=== PATIENT | female | born 1990 | race Caucasian/White ===

== ENCOUNTER 2020-09-06 18:43 | Emergency (ER) | payer OTHER, MEDICAID, SELFPAY ==
--- NOTE | 2020-09-06 | XR_ITS ---
EXAMINATION: XR CHEST CLINICAL INFORMATION: Chest wall pain with inspiration COMPARISON: None TECHNIQUE: 2 views of the chest were obtained. FINDINGS: No significant abnormality is noted involving the heart, lungs, mediastinum, bony thorax or soft tissues. XR/XR chest 2V IMPRESSION: Unremarkable examination.
[2020-09-06 20:23] VITALS: BP 144/75; PULSE 91; RESP 16; TEMP 36.7; O2SAT 96; BMI 44.4
--- NOTE | 2020-09-06 20:43 | ED.EAR ---
HPI - Ear Problem General Chief complaint: Ear Problems Stated complaint: Earache Time Seen by Provider: 09/06/20 20:43 Source: patient Mode of arrival: ambulatory Limitations: no limitations History of Present Illness HPI Narrative: Otherwise healthy 30 year female denies any significant past medical history not currently taking any medications number control. No concern for . Presenting with complaint on and off pain for 1 week in the right ear without any discharge. No fever. Did have a URI last week. Also having right-sided chest wall pain with inspiration and certain movements. Denies any shortness of breath, lower extremity swelling or pain. MD Complaint: ear pain Location: right ear Duration: constant Severity: moderate Relieving factors: nothing Exacerbating factors: nothing Treatment prior to arrival: none Related Data Previous Rx's Medication Instructions Recorded clindamycin HCl 300 mg PO BID 7 Days #14 cap 09/06/20 ibuprofen 800 mg PO Q8H PRN #30 tab 09/06/20 Allergies Allergy/AdvReac Type Severity Reaction Status Date / Time shellfish derived Allergy Severe ANAPHYLAXIS Unverified 05/25/20 19:34 [SHELLFISH DERIVED] Penicillins [PCN] Allergy Unknown UNKNOWN Unverified 05/25/20 19:34 Review of Systems Review of Systems: Constitutional: No Weight loss, No Fever, No Chills, No Night Sweats, No Fatigue, No Malaise ENT/Mouth: No Hearing loss, + Ear Pain, No Nasal Congestion, No Sinus Pain, No Hoarseness, No sore throat, No Rhinorrhea, No Swallowing Difficulty Eyes: No Eye Pain, No Swelling, No Redness, No Foreign Body, No Discharge, No Vision Changes Cardiovascular: + Chest Pain, No SOB, No Dyspnea on Exertion, No Orthopnea, No Edema, No Palpitations Respiratory: No Cough, No Sputum, No Wheezing, No Smoke Exposure, No Dyspnea Gastrointestinal: No Nausea, No Vomiting, No Diarrhea, No Constipation, No abdominal Pain, No Hematochezia, No Melena Genitourinary: no irregular bleeding, No Dysuria, No Urinary Frequency, No Hematuria, No Urinary Incontinence, No Urgency, No Flank Pain Musculoskeletal: No joint pain, No Myalgias, No Joint Swelling Skin: No Skin Lesions, No rash Neuro: No Weakness, No Numbness, No Paresthesias, No Loss of Consciousness, No Dizziness, No Headache Psych: No Social Issues Heme/Lymph: No Bruising, No Bleeding,No Lymphadenopathy Endocrine: No Polyuria, No Polydipsia, No Temperature Intolerance Yes all other systems are reviewed and are negative [facility] Social History Social History Advance Directives: No Advance Directives Information Provided: Yes Physical Exam Vital Signs: Vital Signs: Last Vital Signs Temp 98.0 F 09/06/20 20:23 Pulse 91 09/06/20 20:23 Resp 16 09/06/20 20:23 BP 144/75 H 09/06/20 20:23 Pulse Ox 96 09/06/20 20:23 Body Mass Index 44.4 Reviewed Const: General: cooperative and healthy appearing; No acute distress or intoxicated appearing Nutritional Appearance: average body habitus Orientation/consciousness: patient oriented x3 HENMT: Head: Yes normal to inspection Ears: hearing grossly normal bilaterally, hearing grossly not impaired, normal mastoids bilaterally, no periauricular adenopathy and TM abnormal bulging, wth effusion, erythematous, with fluid behind the TM and with loss of landmarks; not obstructed by cerumen, not perforated, not retracted and not scarred Eyes: General: appearance normal, both eyes and all related structures Visual Mobley: normal visual mobley by confrontation Neck: Neck: Yes normal visual inspection, No positive Brudzinski's sign, No positive Kernig's sign and No tender Thyroid: Thyroid normal Chest: Chest palpation & inspection: normal inspection of the chest and abnormal inspection of the chest (Reproducible pain to the right pectoral muscle region.) Resp: Effort & Inspection: normal respiratory effort Auscultation: clear to auscultation bilaterally Cardio: Jugular venous distension: no JVD Rate: regular rate Heart sounds: S1 normal heart sound present and S2 normal heart sound present GI: Inspection: Yes normal to inspection Palpation (GI): Soft to palpation Percussion: Yes normal to percussion Auscultation: normal bowel sounds : General: Yes no CVA tenderness Back/Spine/Pelvis: Back: no CVA tenderness Skin: General skin exam: no rashes or lesions noted Neuro: General: patient oriented x3 Extrem: General: Yes normal to inspection MDM - Ear Differential Diagnosis Differential diagnosis: Likely otitis media; Unlikely otitis externa, foreign body in ear, ruptured TM and cerumen impaction Medical Records Attestation: I reviewed the patient's medical records. Lab Data Attestation: I reviewed the patient's lab results. Imaging Data Chest x-ray: Radiologist's impression: [id number] [place] [id number] XRay Report Signed Patient: Alen Zamora#: [id number] : 1990Acct:[id number] Age/Sex: 30 / FADM Date: 09/06/20 Loc: HO.ED Attending Dr: Ordering Physician: Generic ED Physician Date of Service: 09/06/20 Procedure(s): XR chest 2V Accession Number(s): [id number] cc: Generic ED Physician~ EXAMINATION: XR CHEST CLINICAL INFORMATION: Chest wall pain with inspiration COMPARISON: None TECHNIQUE: 2 views of the chest were obtained. FINDINGS: No significant abnormality is noted involving the heart, lungs, mediastinum, bony thorax or soft tissues. XR/XR chest 2V IMPRESSION: Unremarkable examination. Dictated By:HÉCTOR DUNNE MD Signed By:<Electronically signed by HÉCTOR DUNNE MD in OV>09/06/202037 DD/ 32 TD/TT: Hunter Guide: LAITH ECG Data Interpretation: Normal sinus rhythm Eighty-six Incomplete RBBB willing No acute ST Sig changes No change from previous Discharge Plan Discharge Clinical Impression: Chest wall pain Otitis media Qualifiers: Otitis media type: serous Chronicity: acute Laterality: right Recurrence: non-recurrent Qualified Code(s): H65.01 - Acute serous otitis media, right ear Patient Disposition: Home, Self-Care Instructions: Costochondritis (ED), Ear Infection (ED) Additional Instructions: Drink plenty of fluids Take medication prescribed Follow-up with her primary care doctor for recheck in 1 week Return if any concerns or worsening symptoms Thank you Prescriptions: New ibuprofen 800 mg tablet 800 mg PO Q8H PRN (Reason: pain) Qty: 30 RF: 0 clindamycin HCl 300 mg capsule 300 mg PO BID 7 Days Qty: 14 RF: 0 Referrals: ED Physician,Generic [Physician] - 1 week
--- NOTE | 2020-09-06 20:44 | ECG_ITS ---
Test Reason : R SIDE CWP Blood Pressure : / mmHG Vent. Rate : 086 BPM Atrial Rate : 086 BPM P-R Int : 128 ms QRS Dur : 096 ms QT Int : 386 ms P-R-T Axes : 051 047 013 degrees QTc Int : 461 ms Normal sinus rhythm Incomplete right bundle branch block Borderline ECG When compared with ECG of 06-MAY-2020 12:19, No significant change was found Referred By: Cali Walker Electronically Signed By:MARIO MUÑIZ
== END 2020-09-06 22:03 | disposition home or self-care (01) ==
PROVIDERS: Emergency Provider Emergency Medicine
DX: R07.89 Other chest pain (principal); H65.01 Acute serous otitis media, right ear
CPT/HCPCS: 71046; 93005; 99283

== ENCOUNTER 2021-09-05 14:41 | Emergency (ER) | payer MEDICAID, SELFPAY ==
--- NOTE | ~2021-09-05 | XR_ITS ---
EXAMINATION: XR CHEST CLINICAL INFORMATION: Cough, green phlegm, question pneumonia COMPARISON: 09/06/2020 TECHNIQUE: Frontal view of the chest was obtained. FINDINGS: No significant abnormality is noted involving the heart, lungs, mediastinum, bony thorax or soft tissues. XR/XR chest 1V IMPRESSION: Unremarkable examination.
--- NOTE | 2021-09-05 17:14 | ECG_ITS ---
Test Reason : CHEST PAIN Blood Pressure : / mmHG Vent. Rate : 108 BPM Atrial Rate : 108 BPM P-R Int : 116 ms QRS Dur : 092 ms QT Int : 342 ms P-R-T Axes : 042 036 014 degrees QTc Int : 458 ms Sinus tachycardia RSR' or QR pattern in V1 suggests right ventricular conduction delay Borderline ECG When compared with ECG of 06-SEP-2020 21:47, No significant change was found Referred By: Generic ED Physician Electronically Signed By:Sreedhar George
[2021-09-05 17:17] VITALS: BP 141/64; PULSE 107; RESP 20; TEMP 36.2; O2SAT 97; BMI 45.7
[2021-09-05 17:45] LABS: MANUAL DIFF FLAG NO
[2021-09-05 17:47] LABS: Basophils Percent Auto 0.4 % (0-2); Eosinophils Absolute Auto 0.2 X10*3/uL (0.0-0.4); Hematocrit 39.8 % (37.0-47.0); Hemoglobin 12.1 g/dl (12.0-16.0); Imm Gran Abs Auto 0.04 X10*3/uL (0.00-0.03); Imm Gran Pct Auto 0.5 % (0.0-0.4); Lymphocytes Absolute Auto 1.4 X10*3/uL (1.2-4.9); Lymphocytes Percent Auto 18.7 % (20-40); Mean Corpuscular HGB Conc 30.4 g/dl (31.0-35.0); Mean Corpuscular Hemoglobin 22.6 pg (27.0-33.0); Mean Corpuscular Volume 74.4 fL (80.0-98.0); Mean Platelet Volume 9.7 fL (9.4-12.3); Monocytes Absolute Auto 0.8 X10*3/uL (0.1-1.2); Neutrophils Absolute Auto 5.1 x10*3/uL (2.0-8.3); Neutrophils Percent Auto 68.4 % (45-73); Platelet Count 345 X10*3/uL (160-400); Red Blood Count 5.35 X10*6/uL (4.20-5.50); Red Cell Distribution Width 16.1 % (11.0-16.0); White Blood Count 7.5 X10*3/uL (4.8-10.8)
[2021-09-05 18:02] LABS: Anion Gap 10 (12-20); Blood Urea Nitrogen 7 mg/dL (9-16); Calcium 9.2 mg/dL (8.4-10.2); Carbon Dioxide 28 mmol/L (22-29); Chloride 104 mmol/L (96-108); Creatinine Clr Calc Pharmacy 141.2; Estimated Glomerular Filt Rate > 60; Glucose Random 91 mg/dL (60-115); Potassium 3.9 mmol/L (3.3-5.1); Sodium 138 mmol/L (135-145)
[2021-09-05 18:09] LABS: Troponin-I High Sensitivity < 3.5 ng/L (<3.5-17.0)
--- NOTE | 2021-09-05 18:50 | ED.URI ---
HPI - URI/Sore Throat General Chief Complaint: Upper Respiratory Symptoms Stated Complaint: chest pain back pain fever chills diff breathing Time Seen by Provider: 09/05/21 17:57 Source: patient Mode of arrival: ambulatory Limitations: no limitations History of Present Illness HPI Narrative: Patient presents to ED for coughing and green phlegm and exposure to her mom was positive for COVID. Patient presently denies any chest pain or shortness of breath. Patient states having symptoms for the past 3 days. Patient states green phlegm when coughing. MD elicited complaint: cough Related Data Previous Rx's Medication Instructions Recorded clindamycin HCl 300 mg capsule 300 mg PO BID 7 Days #14 cap 09/06/20 ibuprofen 800 mg tablet 800 mg PO Q8H PRN #30 tab 09/06/20 Allergies Allergy/AdvReac Type Severity Reaction Status Date / Time shellfish derived Allergy Severe ANAPHYLAXIS Unverified 09/05/21 17:16 [SHELLFISH DERIVED] Penicillins [PCN] Allergy Unknown UNKNOWN Unverified 05/25/20 19:34 Review of Systems Review of Systems: Yes all other systems are reviewed and are negative Constitutional: Constitutional: Reports as per HPI and Reports no additional constitutional complaints Eyes: Eyes: Reports as per HPI and Reports no additional eye complaints ENT: Reports system reviewed and no additional complaints, except as documented and Reports as per HPI Cardiovascular: Cardiovascular: Reports as per HPI, Reports no additional cardiovascular complaints, Denies chest pain, Denies dyspnea and Denies dyspnea on exertion Respiratory: Respiratory: Reports as per HPI, Reports no additional respiratory complaints, Reports cough, Denies dyspnea and Denies dyspnea on exertion Gastrointestinal: Gastrointestinal: Reports as per HPI and Reports no additional gastrointestinal complaints Genitourinary: Genitourinary: Reports no additional female genitourinary complaints and Reports as per HPI Musculoskeletal: Musculoskeletal: Reports no additional musculoskeletal complaints and Reports as per HPI Neurologic: Reports system reviewed and no additional complaints, except as documented and Reports as per HPI Psychiatric: Psychiatric: Reports no additional psychiatric complaints and Reports as per HPI [facility] Past Medical History Medical History (Updated 09/05/21 @ 20:02 by PATY Jeffery) No known health problems Social History Social History Advance Directives: No Advance Directives Information Provided: No Physical Exam Vital Signs: Vital Signs: Last Vital Signs Temp 97.1 F 09/05/21 17:17 Pulse 107 H 09/05/21 17:17 Resp 20 09/05/21 17:17 BP 141/64 H 09/05/21 17:17 Pulse Ox 97 09/05/21 17:17 BMI result Body Mass Index 45.7 Const: General: cooperative, healthy appearing, comfortable, no acute distress, well developed, alert, awake and Physically active Orientation/consciousness: patient oriented x3 HENMT: Head: Yes normal to inspection, Yes No palpable skull fracture present, Yes normocephalic, Yes atraumatic and No abrasion Eyes: General: appearance normal, both eyes and all related structures Neck: Neck: Yes normal visual inspection, Yes full ROM, Yes no lymphadenopathy, Yes no meningeal signs, Yes trachea midline, Yes supple, No anterior neck swelling and No tender Chest: Chest palpation & inspection: normal inspection of the chest and normal palpation of entire chest wall Resp: Effort & Inspection: normal respiratory effort and able to speak in complete sentences Auscultation: clear to auscultation bilaterally Cardio: Jugular venous distension: no JVD Heart sounds: S1 normal heart sound present and S2 normal heart sound present GI: Inspection: Yes normal to inspection and No abdominal wall ecchymosis Palpation (GI): Soft to palpation, not firm, nontender, no guarding and not rigid : General: No CVA tenderness and Yes no CVA tenderness Back/Spine/Pelvis: Back: no CVA tenderness, No CVA tenderness and No back tenderness Skin: General skin exam: no rashes or lesions noted and elasticity normal Neuro: General: patient oriented x3, gait normal, no meningeal signs and CN's II-XI intact bilaterally Cranial nerves: Yes CN's II-XII intact bilaterally Extrem: General: Yes normal to inspection and Yes full ROM Psych: Appearance: grossly normal, well kempt and not disheveled Course Course Course Narrative: COVID swab and lab ordered by triage nurse Reevaluation(s) Reevaluation #1: Patient is COVID positive. Chest x-ray negative for pneumonia. Labs are normal. Patient on cellphone on the bed and comfortable. Patient not in any respiratory distress. Not suspecting PE. Patient vaccinated. Patient is not hypoxic Time: 19:58 MDM - URI/Sore Throat MDM Narrative Medical decision making narrative: COVID Lab Data Result diagrams: 09/05/21 17:37 09/05/21 17:37 Labs: Lab Results 09/05/21 09/05/21 09/05/21 Range/Units 17:37 17:37 17:37 WBC 7.5 (4.8-10.8) X10*3/uL RBC 5.35 (4.20-5.50) X10*6/uL Hgb 12.1 (12.0-16.0) g/dl Hct 39.8 (37.0-47.0) % MCV 74.4 L (80.0-98.0) fL MCH 22.6 L (27.0-33.0) pg MCHC 30.4 L (31.0-35.0) g/dl RDW 16.1 H (11.0-16.0) % Plt Count 345 (160-400) X10*3/uL MPV 9.7 (9.4-12.3) fL Immature Gran % (Auto) 0.5 H (0.0-0.4) % Neut % (Auto) 68.4 (45-73) % Lymph % (Auto) 18.7 L (20-40) % Estill % (Auto) 10.0 (2-11) % Eos % (Auto) 2.0 (0-4) % Baso % (Auto) 0.4 (0-2) % Lymph # (Auto) 1.4 (1.2-4.9) X10*3/uL [place] # (Auto) 0.8 (0.1-1.2) X10*3/uL Eos # (Auto) 0.2 (0.0-0.4) X10*3/uL Baso # (Auto) 0.0 (0.0-0.2) X10*3/uL Abs Immat Gran (auto) 0.04 H (0.00-0.03) X10*3/uL Absolute Neuts (auto) 5.1 (2.0-8.3) x10*3/uL Absolute Nucleated RBC 0.000 (0.0-0.012) X10*3/uL Nucleated RBC % (auto) 0.0 (0.0-0.2) /100WBC Sodium 138 (135-145) mmol/L Potassium 3.9 (3.3-5.1) mmol/L Chloride 104 (96-108) mmol/L Carbon Dioxide 28 (22-29) mmol/L Anion Gap 10 L (12-20) BUN 7 L (9-16) mg/dL Creatinine 0.70 (0.5-1.4) mg/dL Estim Creat Clear Calc 141.2 Estimated GFR > 60 Random Glucose 91 (60-115) mg/dL Calcium 9.2 (8.4-10.2) mg/dL Troponin I High Sens < 3.5 (<3.5-17.0) ng/L COVID-19 ([facility]) (Negative) COVID-19 Clin Com 09/05/21 Range/Units 19:10 WBC (4.8-10.8) X10*3/uL RBC (4.20-5.50) X10*6/uL Hgb (12.0-16.0) g/dl Hct (37.0-47.0) % MCV (80.0-98.0) fL MCH (27.0-33.0) pg MCHC (31.0-35.0) g/dl RDW (11.0-16.0) % Plt Count (160-400) X10*3/uL MPV (9.4-12.3) fL Immature Gran % (Auto) (0.0-0.4) % Neut % (Auto) (45-73) % Lymph % (Auto) (20-40) % [place] % (Auto) (2-11) % Eos % (Auto) (0-4) % Baso % (Auto) (0-2) % Lymph # (Auto) (1.2-4.9) X10*3/uL [place] # (Auto) (0.1-1.2) X10*3/uL Eos # (Auto) (0.0-0.4) X10*3/uL Baso # (Auto) (0.0-0.2) X10*3/uL Abs Immat Gran (auto) (0.00-0.03) X10*3/uL Absolute Neuts (auto) (2.0-8.3) x10*3/uL Absolute Nucleated RBC (0.0-0.012) X10*3/uL Nucleated RBC % (auto) (0.0-0.2) /100WBC Sodium (135-145) mmol/L Potassium (3.3-5.1) mmol/L Chloride (96-108) mmol/L Carbon Dioxide (22-29) mmol/L Anion Gap (12-20) BUN (9-16) mg/dL Creatinine (0.5-1.4) mg/dL Estim Creat Clear Calc Estimated GFR Random Glucose (60-115) mg/dL Calcium (8.4-10.2) mg/dL Troponin I High Sens (<3.5-17.0) ng/L COVID-19 ([facility]A) Positive A (Negative) COVID-19 Clin Com See Note ECG Data Interpretation: Sinus tach. Ventricular rate 1 8. Pr interval 116. QRS 92. QTC 458. Negative STEMI Discharge Plan Discharge Clinical Impression: COVID-19 Patient Disposition: Home, Self-Care Instructions: COVID-19 (Coronavirus Disease 2019) (ED) Additional Instructions: He came back positive for COVID-19. Chest x-ray came back negative for pneumonia. Recommend self-isolation. Return to the ED for any chest pain, shortness of breath, weakness, dizziness, or any other concerning symptoms. Prescriptions: No Action ibuprofen 800 mg tablet 800 mg PO Q8H PRN (Reason: pain) Qty: 30 RF: 0 clindamycin HCl 300 mg capsule 300 mg PO BID 7 Days Qty: 14 RF: 0 Stand Alone Forms: Work/School Release Interventions: ED Discharge Assessment Last Done: 09/05/21 20:03 Discharge Date/Time: 09/05/21 20:07 Print Language: Albanian
[2021-09-05 19:27] LABS: COVID-19 Test Positive (Negative)
== END 2021-09-05 20:07 | disposition home or self-care (01) ==
PROVIDERS: Physician Assistant; Emergency Provider Emergency Medicine Emergency Medical Services
DX: U07.1 COVID-19 (principal); R00.0 Tachycardia, unspecified
CPT/HCPCS: 36415; 71045; 80048; 84484; 85025; 87635; 93005; 99283

== ENCOUNTER 2022-03-11 16:07 | Emergency (ER) | payer OTHER, SELFPAY ==
--- NOTE | ~2022-03-11 | CT_ITS ---
EXAMINATION: CT HEAD WITHOUT CONTRAST CLINICAL INFORMATION: Tingling in right ear. Numbness. Facial asymmetry. COMPARISON: None TECHNIQUE: Contiguous axial imaging was performed from the skull base to vertex without intravenous administration of contrast. This CT examination was performed using dose optimization techniques as appropriate, variously including the following: *Automated exposure control *Adjustment of mA and/or kV according to patient size (this includes techniques or standardized protocols for targeted exams where dose is matched to indication/reason for exam; i.e. extremities or head) *Use of iterative reconstruction technique DLP: 573 mGy-cm FINDINGS: There is no evidence of acute intracranial hemorrhage or territorial infarction. No abnormal mass effect or midline shift is seen. Love to white matter differentiation is well preserved. No extra-axial fluid collections are identified. The ventricles are normal in size. There is no abnormal attenuation within the brain parenchyma. The osseous structures and soft tissues are normal. The mastoid air cells and visualized portions of the paranasal sinuses are well aerated. CT/CT head/brain wo con IMPRESSION: No acute intracranial pathology.
[2022-03-11 16:51] VITALS: BP 139/94; PULSE 100; RESP 16; TEMP 36.7; O2SAT 96; BMI 44.6
--- NOTE | 2022-03-11 17:22 | ED_ITS ---
HPI - General Adult General Chief complaint: General Medical Stated complaint: numbness on R side of face Time Seen by Provider: 03/11/22 17:10 Source: patient Mode of arrival: ambulatory Limitations: no limitations History of Present Illness HPI narrative: 31 yold female with no pmh presents ED for right ear pain since yesterday and this morning woke up with right sided facial/tongue numbness/tingling and 1 hour before ED felt smile on right side is assymetrical. patient states more saliva in right side of moth. patient states no loss of visions, headache, dizziness, paralysis of extremities, slurred speech, rash, nausea, vomitting, chest pain, or trauma. patient denies any control use, drug use, or family history Strokes. Related Data Previous Rx's Medication Instructions Recorded clindamycin HCl 300 mg capsule 300 mg PO BID 7 days #14 caps 09/06/20 ibuprofen 800 mg tablet 800 mg PO Q8H PRN pain #30 tabs 09/06/20 prednisone 20 mg tablet 60 mg PO DAILY 7 days #21 tabs 03/11/22 valacyclovir 1 gram tablet 1,000 mg PO TID 7 days #21 tabs 03/11/22 (Valtrex) Allergies Allergy/AdvReac Type Severity Reaction Status Date / Time shellfish derived Allergy Severe ANAPHYLAXIS Unverified 09/05/21 17:16 [SHELLFISH DERIVED] Penicillins [PCN] Allergy Unknown UNKNOWN Unverified 05/25/20 19:34 Review of Systems Review of Systems: since yesterday right ear pain. woke up this morning with right sided tongue/facial nubmness and hour ago slight right side assymetrical PMFSH Past Medical History Medical History (Updated 03/11/22 @ 19:09 by PATY Jeffery) No known health problems Social History Social History Advance Directives: No Advance Directives Information Provided: No Physical Exam ED Vital Signs: Vital Signs - 24 hr 03/11/22 16:51 03/11/22 19:01 Temperature 98.0 F 98.2 F Pulse Rate 100 81 Respiratory Rate 16 20 Blood Pressure 139/94 H 122/72 Pulse Oximetry 96 98 Oxygen Delivery Method Room Air Room Air BMI result Body Mass Index 44.6 Const General: cooperative, healthy appearing, comfortable, no acute distress, well developed, alert, awake and Physically active HENMT Other: Negative for any right sided forehead crease when lifting eyebrows. Ear exam negative for lesions. Head: Yes normal to inspection, Yes normocephalic, Yes atraumatic and No abrasion Ears: hearing grossly normal bilaterally, external ears normal, TM's normal bilaterally, TM normal on the right, TM normal on the left, EAC's normal, m astoids normal and no periauricular adenopathy Nose image: 1. slight assymetry droop on right side of face. Eyes General: appearance normal, both eyes and all related structures Neck Neck: Yes normal visual inspection, Yes full ROM, Yes no lymphadenopathy, Yes no meningeal signs, Yes trachea midline, Yes supple, No anterior neck swelling and No tender Chest Chest palpation & inspection: normal inspection of the chest and normal palpation of entire chest wall Resp Effort & Inspection: normal respiratory effort and able to speak in complete sentences Auscultation: clear to auscultation bilaterally Cardio Jugular venous distension: no JVD Heart sounds: S1 normal heart sound present and S2 normal heart sound present GI Inspection: Yes normal to inspection Palpation (GI): Soft to palpation, not firm, nontender, no guarding and not rigid General: No CVA tenderness and Yes no CVA tenderness Back/Spine/Pelvis Back: no CVA tenderness, No CVA tenderness and No back tenderness Skin General skin exam: no rashes or lesions noted and elasticity normal Neuro Other: Negative for slurred speech. Negative for loss of vision. Slight assymetry droop near right lip. Negative pronator drift. All extremities equal strength and 5+. Finger to nose and rapid hand movmeemnts intact. Negative rhomberg General: no meningeal signs Extrem General: Yes normal to inspection and Yes full ROM Psych Appearance: grossly normal, well kempt and not disheveled NIH Stroke Scale Internal: Initial- Upon Arrival Level of Consciousness: Alert Level of Consciousness Questions: Answers both questions correctly Level of Consciousness Commands: Performs both tasks correctly Best Gaze: Normal Visual: No visual loss Facial Palsy: Minor paralyis Motor Arm (Right): No drift Motor Arm (Left): No drift Motor Leg (Right): No drift Motor Leg (Left): No drift Limb Ataxia: Absent Sensory: Normal Best Language: No aphasia Dysarthia: Normal Extinction and Inattention: No abnormality Score: 1 Course Course Course Narrative: Not supsecting stroke. Diagnosis is hoyos;s palsy. Will do labs influding lyme and HSV. head CT scan ordered. No stroke protocal Reevaluation(s) Reevaluation #1: Case and patient was discussed with Dr. Be who agreed with plan. patient to be discharge with prednisone and valtrex. Ear exam negative for black nolan syndrome. Head CT scan normal. non supsecting stroke. neuro exam intact. Time: 19:06 Medical Decision Making MDM Narrative Medical decision making narrative: Hoyos's palsy Lab Data Result diagrams: 03/11/22 17:43 03/11/22 17:44 Labs: Lab Results 03/11/22 03/11/22 03/11/22 Range/Units 17:43 17:44 17:44 WBC 8.5 (4.8-10.8) X10*3/uL RBC 5.35 (4.20-5.50) X10*6/uL Hgb 11.9 L (12.0-16.0) g/dl Hct 40.5 (37.0-47.0) % MCV 75.7 L (80.0-98.0) fL MCH 22.2 L (27.0-33.0) pg MCHC 29.4 L (31.0-35.0) g/dl RDW 16.7 H (11.0-16.0) % Plt Count 305 (160-400) X10*3/uL MPV 10.7 (9.4-12.3) fL Immature Gran % (Auto) 0.6 H (0.0-0.4) % Neut % (Auto) 58.1 (45-73) % Lymph % (Auto) 25.3 (20-40) % [place] % (Auto) 10.4 (2-11) % Eos % (Auto) 5.1 H (0-4) % Baso % (Auto) 0.5 (0-2) % Lymph # (Auto) 2.1 (1.2-4.9) X10*3/uL [place] # (Auto) 0.9 (0.1-1.2) X10*3/uL Eos # (Auto) 0.4 (0.0-0.4) X10*3/uL Baso # (Auto) 0.0 (0.0-0.2) X10*3/uL Abs Immat Gran (auto) 0.05 H (0.00-0.03) X10*3/uL Absolute Neuts (auto) 4.9 (2.0-8.3) x10*3/uL Absolute Nucleated RBC 0.020 H (0.0-0.012) X10*3/uL Nucleated RBC % (auto) 0.2 (0.0-0.2) /100WBC PT Cancelled INR Cancelled APTT Cancelled Sodium 137 (135-145) mmol/L Potassium 4.0 (3.3-5.1) mmol/L Chloride 107 (96-108) mmol/L Carbon Dioxide 22 (22-29) mmol/L Anion Gap 12 (12-20) BUN 8 L (9-16) mg/dL Creatinine 0.68 (0.5-1.4) mg/dL Estim Creat Clear Calc 143.3 Estimated GFR > 60 Random Glucose 91 (60-115) mg/dL Calcium 8.9 (8.4-10.2) mg/dL Total Bilirubin < 0.2 (0.0-1.0) mg/dL AST 22 (5-31) U/L ALT 38 H (0-31) U/L Alkaline Phosphatase 107 (39-117) U/L Total Protein 6.6 (6.5-8.0) g/dL Albumin 4.0 (3.5-5.0) g/dL Beta HCG, Quant mIU/mL 03/11/22 Range/Units 17:45 WBC (4.8-10.8) X10*3/uL RBC (4.20-5.50) X10*6/uL Hgb (12.0-16.0) g/dl Hct (37.0-47.0) % MCV (80.0-98.0) fL MCH (27.0-33.0) pg MCHC (31.0-35.0) g/dl RDW (11.0-16.0) % Plt Count (160-400) X10*3/uL MPV (9.4-12.3) fL Immature Gran % (Auto) (0.0-0.4) % Neut % (Auto) (45-73) % Lymph % (Auto) (20-40) % [place] % (Auto) (2-11) % Eos % (Auto) (0-4) % Baso % (Auto) (0-2) % Lymph # (Auto) (1.2-4.9) X10*3/uL [place] # (Auto) (0.1-1.2) X10*3/uL Eos # (Auto) (0.0-0.4) X10*3/uL Baso # (Auto) (0.0-0.2) X10*3/uL Abs Immat Gran (auto) (0.00-0.03) X10*3/uL Absolute Neuts (auto) (2.0-8.3) x10*3/uL Absolute Nucleated RBC (0.0-0.012) X10*3/uL Nucleated RBC % (auto) (0.0-0.2) /100WBC PT INR APTT Sodium (135-145) mmol/L Potassium (3.3-5.1) mmol/L Chloride (96-108) mmol/L Carbon Dioxide (22-29) mmol/L Anion Gap (12-20) BUN (9-16) mg/dL Creatinine (0.5-1.4) mg/dL Estim Creat Clear Calc Estimated GFR Random Glucose (60-115) mg/dL Calcium (8.4-10.2) mg/dL Total Bilirubin (0.0-1.0) mg/dL AST (5-31) U/L ALT (0-31) U/L Alkaline Phosphatase (39-117) U/L Total Protein (6.5-8.0) g/dL Albumin (3.5-5.0) g/dL Beta HCG, Quant < 2 mIU/mL Discharge Plan Discharge Clinical Impression: Hoyos's palsy Patient Disposition: Home, Self-Care Instructions: Hoyos Palsy (ED) Additional Instructions: The head CT scan came back negative for stroke. History and physical exam indicates Hoyos's palsy. You need follow-up with primary care provider and Neurology for further evaluation also referral to physical therapy. Return to the ED for loss of vision, chest pain, shortness of breath, headache, paralysis of extremities, worsening facial droop, or any other concerning symptoms. Prescriptions: New prednisone 20 mg tablet 60 mg PO DAILY 7 Days Qty: 21 0RF valacyclovir [Valtrex] 1 gram tablet 1,000 mg PO TID 7 Days Qty: 21 0RF No Action ibuprofen 800 mg tablet 800 mg PO Q8H PRN (Reason: pain) Qty: 30 0RF clindamycin HCl 300 mg capsule 300 mg PO BID 7 Days Qty: 14 0RF Referrals: Ignacio Hanson MD [Physician] - (Hoyos's palsy) Stand Alone Forms: Work/School Release Interventions: ED Discharge Assessment Last Done: 03/11/22 19:17 Discharge Date/Time: 03/11/22 19:20 Print Language: Romanian
[2022-03-11 17:53] LABS: MANUAL DIFF FLAG NO
[2022-03-11 17:57] LABS: Basophils Percent Auto 0.5 % (0-2); Eosinophils Absolute Auto 0.4 X10*3/uL (0.0-0.4); Eosinophils Percent Auto 5.1 % (0-4); Hematocrit 40.5 % (37.0-47.0); Hemoglobin 11.9 g/dl (12.0-16.0); Imm Gran Abs Auto 0.05 X10*3/uL (0.00-0.03); Imm Gran Pct Auto 0.6 % (0.0-0.4); Lymphocytes Absolute Auto 2.1 X10*3/uL (1.2-4.9); Lymphocytes Percent Auto 25.3 % (20-40); Mean Corpuscular HGB Conc 29.4 g/dl (31.0-35.0); Mean Corpuscular Hemoglobin 22.2 pg (27.0-33.0); Mean Corpuscular Volume 75.7 fL (80.0-98.0); Mean Platelet Volume 10.7 fL (9.4-12.3); Monocytes Absolute Auto 0.9 X10*3/uL (0.1-1.2); Monocytes Percent Auto 10.4 % (2-11); NRBC Pct Auto 0.2 /100WBC (0.0-0.2); Neutrophils Absolute Auto 4.9 x10*3/uL (2.0-8.3); Neutrophils Percent Auto 58.1 % (45-73); Platelet Count 305 X10*3/uL (160-400); Red Blood Count 5.35 X10*6/uL (4.20-5.50); Red Cell Distribution Width 16.7 % (11.0-16.0); White Blood Count 8.5 X10*3/uL (4.8-10.8)
[2022-03-11 18:19] LABS: HCG Quantitative < 2 mIU/mL
[2022-03-11 18:21] LABS: Alanine Aminotransferase 38 U/L (0-31); Alkaline Phosphatase 107 U/L (39-117); Anion Gap 12 (12-20); Aspartate Amino Transferase 22 U/L (5-31); Bilirubin Total < 0.2 mg/dL (0.0-1.0); Blood Urea Nitrogen 8 mg/dL (9-16); Calcium 8.9 mg/dL (8.4-10.2); Carbon Dioxide 22 mmol/L (22-29); Chloride 107 mmol/L (96-108); Creatinine Clr Calc Pharmacy 143.3; Estimated Glomerular Filt Rate > 60; Glucose Random 91 mg/dL (60-115); Sodium 137 mmol/L (135-145); Total Protein 6.6 g/dL (6.5-8.0)
[2022-03-11 19:01] VITALS: BP 122/72; PULSE 81; RESP 20; TEMP 36.8; O2SAT 98
[2022-03-11] MEDS: Ibuprofen 800 MG TABLET PO (19:04)
[2022-03-12 17:01] LABS: Lyme Abs Screen <0.90 index
[2022-03-15 21:02] LABS: HSV 1 IgM IFA Negative (Negative); HSV 2 IgM IFA Negative (Negative)
== END 2022-03-11 19:20 | disposition home or self-care (01) ==
PROVIDERS: Physician Assistant; Emergency Provider Internal Medicine
DX: G51.0 Bell's palsy (principal); H92.01 Otalgia, right ear
CPT/HCPCS: 36415; 70450; 80053; 84702; 85025; 86617; 86618; 86695; 86696; 99283; 99284

== ENCOUNTER 2022-03-19 09:23 | Emergency (ER) | payer OTHER, SELFPAY ==
--- NOTE | ~2022-03-19 | CT_ITS ---
EXAMINATION: CT FACIAL BONES WITH CONTRAST CLINICAL INFORMATION: Hoyos's palsy. COMPARISON: CT scan of the head 03/11/2022. TECHNIQUE: [employer]er images were obtained. CT imaging of the face was performed after the intravenous administration of 85 mL Omnipaque 350. Data was reformatted into multiplanar images at the acquisition workstation. This CT examination was performed using dose optimization techniques as appropriate, variously including the following: *Automated exposure control *Adjustment of mA and/or kV according to patient size (this includes techniques or standardized protocols for targeted exams where dose is matched to indication/reason for exam; i.e. extremities or head) *Use of iterative reconstruction technique DLP: 359 mGy-cm FINDINGS: There are a few somewhat prominent symmetrically distributed cervical lymph nodes, none of which demonstrate worrisome enhancement characteristics to suggest catheter invasion or central necrosis. Parotid glands are normal. Grossly no abnormal soft tissue mass or enhancement along the expected the extracranial course of the facial or trigeminal nerves. The skull base is intact. There is preservation of perineural fat at the stylomastoid foramina. There is no mastoid middle ear effusion. Temporomandibular joints are grossly symmetric. Limited visualization of the intracranial anatomy reveals no abnormal finding. Specifically there is no intracranial mass effect or hydrocephalus. Globes and extraocular muscles are symmetric. There is questionable enlargement of the medial and inferior rectus muscles. No abnormal retrobulbar mass or inflammation. Lamina papyracea and orbital floors are intact. Orbital apices are unremarkable. There is no active paranasal sinus disease. All of the major paranasal sinus drainage pathways are patent. CT/CT facial bones w con IMPRESSION: There is no discrete anatomic finding to provide a definitive explanation for this patient's clinical symptoms. Specifically no worrisome mass or enhancement along the extra cranial course of the 5th or 7th cranial nerves. Limited visualization of intracranial anatomy reveals no abnormal finding. A dedicated brain MRI can be obtained for better anatomic characterization of the nuclear, fascicular, cisternal, cavernous, and canalicular segments of the cranial nerves. Incidentally there is mild symmetric enlargement of the medial and inferior rectus muscles. Findings could represent a manifestation of thyroid orbitopathy. Correlation with thyroid function tests is therefore recommended.
[2022-03-19 09:30] VITALS: BP 148/98; PULSE 96; RESP 19; TEMP 36.6; O2SAT 98; BMI 44.8
[2022-03-19 12:17] LABS: Basophils Absolute Auto 0.1 X10*3/uL (0.0-0.2); Basophils Percent Auto 0.3 % (0-2); Eosinophils Absolute Auto 0.3 X10*3/uL (0.0-0.4); Eosinophils Percent Auto 1.5 % (0-4); Hematocrit 40.6 % (37.0-47.0); Hemoglobin 12.3 g/dl (12.0-16.0); Imm Gran Abs Auto 0.12 X10*3/uL (0.00-0.03); Imm Gran Pct Auto 0.7 % (0.0-0.4); MANUAL DIFF FLAG SCAN; Mean Corpuscular HGB Conc 30.3 g/dl (31.0-35.0); Mean Corpuscular Volume 73.4 fL (80.0-98.0); Monocytes Absolute Auto 1.1 X10*3/uL (0.1-1.2); Monocytes Percent Auto 6.7 % (2-11); Neutrophils Absolute Auto 8.5 x10*3/uL (2.0-8.3); Neutrophils Percent Auto 51.8 % (45-73); Platelet Count 388 X10*3/uL (160-400); Red Blood Count 5.53 X10*6/uL (4.20-5.50); Red Cell Distribution Width 18.1 % (11.0-16.0); SCAN SMEAR FLAG 1; White Blood Count 16.5 X10*3/uL (4.8-10.8)
[2022-03-19 12:19] LABS: Lymphocytes Absolute Auto 6.4 X10*3/uL (1.2-4.9); Mean Corpuscular Hemoglobin 22.2 pg (27.0-33.0)
[2022-03-19 12:32] LABS: Anion Gap 10 (12-20); Blood Urea Nitrogen 10 mg/dL (9-16); C Reactive Protein 0.36 mg/dL (< or = 0.50); Calcium 8.9 mg/dL (8.4-10.2); Carbon Dioxide 29 mmol/L (22-29); Chloride 105 mmol/L (96-108); Creatinine Clr Calc Pharmacy 141.4; Estimated Glomerular Filt Rate > 60; Glucose Random 95 mg/dL (60-115); Potassium 4.4 mmol/L (3.3-5.1); Sodium 140 mmol/L (135-145)
--- NOTE | 2022-03-19 12:33 | ED.GENADULT ---
HPI - General Adult General Chief complaint: General Medical Stated complaint: Facial Pain Prev Diagnosed w/Funk Palsy 1 Wk Ago Time Seen by Provider: 03/19/22 10:40 Source: patient Mode of arrival: ambulatory History of Present Illness HPI narrative: 31-year-old female with a past medical history of Hoyos's palsy diagnosed in the ED on 03/11/2022, presenting to the ED complaining of right-sided facial pain and swelling since yesterday. Reports compliance with previously prescribed valacyclovir and prednisone, however now with immense pain to right side radiating to right ear/right jaw. Denies injury/trauma, fever, difficulty/inability to swallow, drainage from ears/hearing loss Onset (ago): week(s) Related Data Previous Rx's Medication Instructions Recorded clindamycin HCl 300 mg capsule 300 mg PO BID 7 days #14 caps 09/06/20 ibuprofen 800 mg tablet 800 mg PO Q8H PRN pain #30 tabs 09/06/20 prednisone 20 mg tablet 60 mg PO DAILY 7 days #21 tabs 03/11/22 valacyclovir 1 gram tablet 1,000 mg PO TID 7 days #21 tabs 03/11/22 (Valtrex) clindamycin HCl 150 mg capsule 450 mg PO Q8H 7 days #63 caps 03/19/22 prednisone 20 mg tablet 60 mg PO DAILY 7 days #21 tabs 03/19/22 Allergies Allergy/AdvReac Type Severity Reaction Status Date / Time shellfish derived Allergy Severe ANAPHYLAXIS Unverified 09/05/21 17:16 [SHELLFISH DERIVED] Penicillins [PCN] Allergy Unknown UNKNOWN Unverified 05/25/20 19:34 Review of Systems Review of Systems: Constitutional: No Fever, No Chills, No Night Sweats, No Fatigue, No Malaise ENT/Mouth: + Ear Pain, No Nasal Congestion,No Hoarseness, No sore throat, No Rhinorrhea, No Swallowing Difficulty, +right facial pain Eyes: No Eye Pain, No Swelling, No Redness, No Discharge, No Vision Changes Cardiovascular: No Chest Pain, No SOB Respiratory: No Cough, No Sputum, No Dyspnea Gastrointestinal: No Nausea, No Vomiting, No Diarrhea, No Abdominal pain Genitourinary: No irregular bleeding, No Dysuria Musculoskeletal: No joint pain, No Myalgias, No Joint Swelling Skin: No Skin Lesions, No rash Neuro: No Weakness, No Numbness, No Paresthesias, No Loss of Consciousness, No Dizziness, No Headache Yes all other systems are reviewed and are negative [facility] Past Medical History Attestation statement: The following information was validated with the patient. Medical History No known health problems Social History Social History Advance Directives: Yes Advance Directives Information Provided: Yes Advance Directives on File: No Physical Exam ED Vital Signs: Vital Signs - 24 hr 03/19/22 09:30 03/19/22 14:00 Temperature 98 F 98.0 F Pulse Rate 96 80 Respiratory Rate 19 16 Blood Pressure 148/98 H 132/75 Pulse Oximetry 98 98 Oxygen Delivery Method Room Air Room Air BMI result Body Mass Index 44.8 Const General: cooperative, healthy appearing and no acute distress Orientation/consciousness: patient oriented x3 Limitations: no limitations HENMT Other: + complete right facial paralysis c/w Hoyos's palsy + right-sided lower jaw/cheek swelling. No erythema/cellulitis. + right-sided gingival tenderness to upper and lower 3rd molars. No appreciable fluctuance or induration. No trismus. No parotidis Head: Yes normal to inspection and Yes atraumatic Ears: hearing grossly normal bilaterally, external ears normal, TM's normal bilaterally and mastoids normal General nose exam: Normal external nose present Mouth: Normal oral and palatal mucosa present Throat: Yes tonsils normal, Yes uvula midline, No peritonsillar mass and No uvular edema Eyes General: appearance normal, both eyes and all related structures Pupils: Equal, round and reactive pupils present EOM: EOMs intact bilaterally Neck Neck: Yes normal visual inspection, Yes no meningeal signs, Yes supple and No anterior neck swelling Resp Effort & Inspection: normal respiratory effort and no respiratory distress Cardio Rate: regular rate Heart sounds: S1 normal heart sound present and S2 normal heart sound present Skin Rashes: no rashes Wounds: no wounds Neuro General: patient oriented x3, gait normal, tone normal, moves all extremities, no meningeal signs and no focal motor deficits Cranial nerves: Yes CN's II-XII intact bilaterally and Yes Equal, round and reactive pupils present Gait exam (Neuro): Normal gait present Extrem General: Yes normal to inspection Course Course Course Narrative: -1230--noted leukocytosis of 16.5 likely from prednisone use rather than severe sepsis. Labs otherwise unremarkable -ESR and CRP WNL Case discussed with Dr. Turk who also evaluated patient, he will discuss with Neurology > Neurology, Dr. Hanson recommended 60 mg of prednisone daily again x7 days & Will also give course Augmentin. Discussed with patient worrisome signs and symptoms and strict return precautions and need a close follow-up with Neurology Medical Decision Making MDM Narrative Medical decision making narrative: 31-year-old female with a past medical history of Hoyos's palsy diagnosed in the ED on 03/11/2022, presenting to the ED complaining of right-sided facial pain and swelling since yesterday. On exam vital signs stable, NAD, physical exam as above with noted right-sided Hoyos's palsy, and right-sided facial swelling with gingival tenderness. No appreciable dental abscess. No evidence of [employer], talking in complete sentences, no respiratory distress. No Parotidis. Concern for intraoral edema versus dental abscess. No evidence of [place]. No herpetic lesions noted. No cellulitis Labs and CT scan reviewed from previous visit Plan: Lung repeat labs, CT facial without IV contrast Medical Records Medical records reviewed: Yes I reviewed the patient's medical records. Lab Data Lab results reviewed: Yes I reviewed the patient's lab results. Result diagrams: 03/19/22 12:09 03/19/22 12:09 Labs: Lab Results 03/19/22 03/19/22 03/19/22 Range/Units 12:09 12:09 12:09 WBC 16.5 H (4.8-10.8) X10*3/uL RBC 5.53 H (4.20-5.50) X10*6/uL Hgb 12.3 (12.0-16.0) g/dl Hct 40.6 (37.0-47.0) % MCV 73.4 L (80.0-98.0) fL MCH 22.2 L (27.0-33.0) pg MCHC 30.3 L (31.0-35.0) g/dl RDW 18.1 H (11.0-16.0) % Plt Count 388 D (160-400) X10*3/uL MPV 10.0 (9.4-12.3) fL Immature Gran % (Auto) 0.7 H (0.0-0.4) % Neut % (Auto) 51.8 (45-73) % Lymph % (Auto) 39.0 (20-40) % [place] % (Auto) 6.7 (2-11) % Eos % (Auto) 1.5 (0-4) % Baso % (Auto) 0.3 (0-2) % Lymph # (Auto) 6.4 H (1.2-4.9) X10*3/uL [place] # (Auto) 1.1 (0.1-1.2) X10*3/uL Eos # (Auto) 0.3 (0.0-0.4) X10*3/uL Baso # (Auto) 0.1 (0.0-0.2) X10*3/uL Abs Immat Gran (auto) 0.12 H (0.00-0.03) X10*3/uL Absolute Neuts (auto) 8.5 H (2.0-8.3) x10*3/uL Absolute Nucleated RBC 0.000 (0.0-0.012) X10*3/uL Nucleated RBC % (auto) 0.0 (0.0-0.2) /100WBC Smear Tech's Comments VERIFIED ESR 7 (0-20) MM/HR Sodium 140 (135-145) mmol/L Potassium 4.4 (3.3-5.1) mmol/L Chloride 105 (96-108) mmol/L Carbon Dioxide 29 (22-29) mmol/L Anion Gap 10 L (12-20) BUN 10 (9-16) mg/dL Creatinine 0.69 (0.5-1.4) mg/dL Estim Creat Clear Calc 141.4 Estimated GFR > 60 Random Glucose 95 (60-115) mg/dL Calcium 8.9 (8.4-10.2) mg/dL C-Reactive Protein 0.36 (< or = 0.50) mg/dL TSH 1.63 (0.32-4.0) uIU/mL Critical Care Time Critical Care Time Critical Care Time: Yes Total Critical Care Time: 35 Attestation: I have personally provided critical care time exclusive of time spent on separately billable procedures. Time includes review of lab data, radiology results, discussion with consultants, and monitoring for potential decompensation. Intervention performed as documented. Discharge Plan Discharge Clinical Impression: Hoyos's palsy, Facial swelling Patient Disposition: Home, Self-Care Instructions: Hoyos Palsy (ED) Additional Instructions: Your blood work was reassuring. Your CT scan does not show any fluid collection/focal infection. Continue taking last doses of Valtrex After speaking with the specialist it is recommended to take prednisone for 1 more week. We are also giving antibiotics called clindamycin. Please call Neurology for follow-up. If symptoms persist or worsen, he developed redness to her face, intraoral swelling, difficulty swallowing, persistent worsening pain or swelling please return to the emergency department Prescriptions: New prednisone 20 mg tablet 60 mg PO DAILY 7 Days Qty: 21 0RF clindamycin HCl 150 mg capsule 450 mg PO Q8H 7 Days Qty: 63 0RF No Action ibuprofen 800 mg tablet 800 mg PO Q8H PRN (Reason: pain) Qty: 30 0RF clindamycin HCl 300 mg capsule 300 mg PO BID 7 Days Qty: 14 0RF prednisone 20 mg tablet 60 mg PO DAILY 7 Days Qty: 21 0RF valacyclovir [Valtrex] 1 gram tablet 1,000 mg PO TID 7 Days Qty: 21 0RF Referrals: Ignacio Hanson MD [Physician] - 5 days
[2022-03-19 12:45] LABS: SLIDE REVIEW VERIFIED
[2022-03-19 13:00] LABS: Erythrocyte Sedimentation Rate 7 MM/HR (0-20)
[2022-03-19] MEDS: iohexoL 350 MG/ML 100 ML INFUS..BTL IV (13:05)
[2022-03-19] MEDS: Ketorolac Tromethamine 15 MG/ML VIAL IVPUSH ×2 (13:35→16:11)
[2022-03-19 14:00] VITALS: BP 132/75; PULSE 80; RESP 16; TEMP 36.7; O2SAT 98
[2022-03-19] MEDS: Acetaminophen 325 MG TABLET 650 MG PO (16:10)
[2022-03-19 16:22] LABS: TSH reflex Free T4 1.63 uIU/mL (0.32-4.0)
[2022-03-19 18:06] VITALS: BP 139/64; PULSE 80; RESP 16; TEMP 36.7; O2SAT 98
== END 2022-03-19 18:19 | disposition home or self-care (01) ==
PROVIDERS: Physician Assistant; Emergency Provider Emergency Medicine
DX: G51.0 Bell's palsy (principal); R22.1 Localized swelling, mass and lump, neck; Z79.899 Other long term (current) drug therapy
CPT/HCPCS: 36415; 70487; 80048; 84443; 85025; 85652; 86140; 96374; 96376; 99284; J1885; Q9967

== ENCOUNTER 2022-10-26 01:39 | Emergency (ER) | payer OTHER, SELFPAY ==
--- NOTE | ~2022-10-26 | CT_ITS ---
EXAMINATION: CT SOFT TISSUE NECK WITH CONTRAST CLINICAL INFORMATION: Peritonsillar abscess COMPARISON: None TECHNIQUE: Following the intravenous administration of 60 mL of Omnipaque 350 intravenous contrast, helical imaging was performed in the axial plane with generation of coronal and sagittal reformatted images. This CT examination was performed using dose optimization techniques as appropriate, variously including the following: *Automated exposure control *Adjustment of mA and/or kV according to patient size (this includes techniques or standardized protocols for targeted exams where dose is matched to indication/reason for exam; i.e. extremities or head) *Use of iterative reconstruction technique DLP: 826 mGy-cm FINDINGS: There is prominence of the bilateral palatine tonsils. There is some artifact at this level due to dental hardware. There is a 0.7 cm fluid collection adjacent to the right palatine tonsil. No additional collection. Prominent cervical lymph nodes are seen bilaterally, likely reactive. The parotid glands are homogeneous in attenuation. The submandibular glands are normal. The laryngeal structures are normal. The parapharyngeal fat is preserved. No retropharyngeal fluid collection is seen. The thyroid gland is normal. The superior mediastinum is unremarkable. The lung apices are clear. The mastoid air cells and visualized portions of the paranasal sinuses are well-aerated. The temporomandibular joints are normal. No periapical disease is identified. No osseous abnormalities are seen. The imaged portions of the brain parenchyma are unremarkable. CT/CT soft tissue neck w IV con IMPRESSION: Prominent bilateral palatine tonsils. 0.7 cm fluid collection adjacent to the right palatine tonsil.
[2022-10-26 01:46] VITALS: BP 123/83; PULSE 105; RESP 20; TEMP 36.7; O2SAT 98; BMI 45.7
[2022-10-26 02:20] LABS: COVID-19 Test Negative (Negative); IDNOW Serial# 16C4AD1C; IDNOW Serial# BCCEAD1C; Influenza A Negative (Negative); Influenza B2 Negative (Negative)
[2022-10-26 02:32] VITALS: BP 125/62; PULSE 102; RESP 16; TEMP 36.6; O2SAT 97
--- NOTE | 2022-10-26 04:55 | ED.GENADULT ---
HPI - General Adult General Chief complaint: General Medical Stated complaint: trouble breathing Time Seen by Provider: 10/26/22 04:44 Source: patient Mode of arrival: ambulatory Limitations: no limitations History of Present Illness HPI narrative: Patient with recurrent tonsillitis been having pain in her throat for last few days tested for strep which was positive 2 days ago started on clindamycin taken 2 doses today she noticed some more pain on the right side with difficulty in swallowing no fever no chills Related Data Previous Rx's Medication Instructions Recorded clindamycin HCl 300 mg capsule 300 mg PO BID 7 days #14 caps 09/06/20 ibuprofen 800 mg tablet 800 mg PO Q8H PRN pain #30 tabs 09/06/20 prednisone 20 mg tablet 60 mg PO DAILY 7 days #21 tabs 03/11/22 valacyclovir 1 gram tablet 1,000 mg PO TID 7 days #21 tabs 03/11/22 (Valtrex) clindamycin HCl 150 mg capsule 450 mg PO Q8H 7 days #63 caps 03/19/22 prednisone 20 mg tablet 60 mg PO DAILY 7 days #21 tabs 03/19/22 Allergies Allergy/AdvReac Type Severity Reaction Status Date / Time shellfish derived Allergy Severe ANAPHYLAXIS Verified 10/26/22 05:27 [SHELLFISH DERIVED] Penicillins [PCN] Allergy Unknown UNKNOWN Verified 10/26/22 05:27 Review of Systems Review of Systems: Yes all other systems are reviewed and are negative PMFSH Past Medical History Medical History No known health problems Social History Social History Smoked in Last 30 Days: No Use of substances other than those prescribed or required for medical reasons: No Advance Directives: No Physical Exam ED Vital Signs: Vital Signs - 24 hr 10/26/22 01:46 10/26/22 02:32 10/26/22 06:49 Temperature 98.1 F 97.8 F 98.6 F Pulse Rate 105 H 102 H 108 H Respiratory Rate 20 16 18 Blood Pressure 123/83 125/62 119/62 Pulse Oximetry 98 97 98 Oxygen Delivery Method Room Air Room Air Room Air Blow By BMI result Body Mass Index 45.7 Appearance: Alert. Oriented X3. No acute distress. Eyes: PERRLA, No Nystagmus ENT: Edematous oropharynx with enlarged tonsils right> left. Oral Mucosa moist Neck: Normal inspection. Neck supple. No stridor CVS: Normal heart rate and rhythm. Pulses normal. Respiratory: No respiratory distress. Equal air entry bilateral, no wheezing/rales/rhonchi Abdomen: Soft and nontender. Skin: Skin warm and dry. Normal skin color. Normal skin turgor. Extremities: No lower extremity edema. No calf tenderness Neuro: Oriented X 3. Medications Administered Discontinued Medications Generic Name Dose Route Start Last Admin Trade Name Freq PRN Reason Stop Dose Admin Dexamethasone Sodium Phosphate 10 mg 10/26/22 04:55 10/26/22 05:28 Dexamethasone Sod Phosphate 10 Mg/Ml Vial IVPUSH 10/26/22 04:56 10 mg ONCE ONE Administration Ceftriaxone Sodium 1 gm/ 50 mls @ 100 mls/hr 10/26/22 04:55 10/26/22 05:29 Sodium Chloride IV 10/26/22 05:24 100 mls/hr ONCE ONE Administration Iohexol 60 ml 10/26/22 06:21 10/26/22 06:22 Iohexol 350 Mg/Ml 100 Ml Infus..Btl IV 10/26/22 06:22 60 ml ONCE ONE Administration Medical Decision Making Medical Decision Making [facility] Narrative: Patient on clindamycin CT scan showed 0.7 cm right palatine abscess which is slightly deeper. Patient felt better after Decadron and IV hydration and IV Rocephin discharge patient home on clindamycin advised to follow up with ENT specialist at this time patient feeling much better able to swallow Lab Data [facility] Lab Attestation statement: I reviewed the patient's lab results. 10/26/22 05:16 10/26/22 05:16 Labs: Lab Results 10/26/22 10/26/22 10/26/22 Range/Units 01:51 01:51 05:16 WBC 11.3 H (4.8-10.8) X10*3/uL RBC 5.16 (4.20-5.50) X10*6/uL Hgb 11.2 L (12.0-16.0) g/dl Hct 37.1 (37.0-47.0) % MCV 71.9 L (80.0-98.0) fL MCH 21.7 L (27.0-33.0) pg MCHC 30.2 L (31.0-35.0) g/dl RDW 16.9 H (11.0-16.0) % Plt Count 363 (160-400) X10*3/uL MPV 9.8 (9.4-12.3) fL Immature Gran % (Auto) 0.4 (0.0-0.4) % Neut % (Auto) 61.1 (45-73) % Lymph % (Auto) 27.5 (20-40) % Kendall % (Auto) 7.8 (2-11) % Eos % (Auto) 2.7 (0-4) % Baso % (Auto) 0.5 (0-2) % Lymph # (Auto) 3.1 (1.2-4.9) X10*3/uL Kendall # (Auto) 0.9 (0.1-1.2) X10*3/uL Eos # (Auto) 0.3 (0.0-0.4) X10*3/uL Baso # (Auto) 0.1 (0.0-0.2) X10*3/uL Abs Immat Gran (auto) 0.05 H (0.00-0.03) X10*3/uL Absolute Neuts (auto) 6.9 (2.0-8.3) x10*3/uL Absolute Nucleated RBC 0.000 (0.0-0.012) X10*3/uL Nucleated RBC % (auto) 0.0 (0.0-0.2) /100WBC Sodium (135-145) mmol/L Potassium (3.3-5.1) mmol/L Chloride (96-108) mmol/L Carbon Dioxide (22-29) mmol/L Anion Gap (12-20) BUN (9-16) mg/dL Creatinine (0.5-1.4) mg/dL Estim Creat Clear Calc Estimated GFR Random Glucose (60-115) mg/dL Calcium (8.4-10.2) mg/dL Beta HCG, Quant mIU/mL Urine Color Urine Appearance Urine pH (5.0-9.0) Ur Specific [place] (1.005-1.025) Urine Protein (Neg-Trace) mg/dL Urine Glucose (UA) (Negative) mg/dL Urine Ketones (Negative) mg/dL Urine Blood (Negative) Urine Nitrite (Negative) Ur Leukocyte Esterase (Negative) Urine RBC (0-2) /HPF Urine WBC (0-5) /HPF Urine WBC Clumps Ur Squamous Epith Cells (0-2) /HPF Ur Transition Epith Cell Ur Renal Epithelial Cell Calcium Oxalate Crystal Leucine Crystals Cystine Crystals Tyrosine Crystals Other Crystals Urine Bacteria (None Seen) Urine Parasites Bilirubin Casts Epithelial Casts Fatty Casts Hyaline Casts (0-2) /LPF Granular Casts Waxy Casts Broad Casts RBC Casts WBC Casts Other Casts Urine Trichomonas Urine Yeast COVID-19 (PURNIMA) Negative (Negative) COVID-19 Clin Com See Note Influenza Type A (IRAM) Negative (Negative) Influenza Type B (IRAM) Negative (Negative) Influenza A & B Note See Note 10/26/22 10/26/22 10/26/22 Range/Units 05:16 05:32 05:32 WBC (4.8-10.8) X10*3/uL RBC (4.20-5.50) X10*6/uL Hgb (12.0-16.0) g/dl Hct (37.0-47.0) % MCV (80.0-98.0) fL MCH (27.0-33.0) pg MCHC (31.0-35.0) g/dl RDW (11.0-16.0) % Plt Count (160-400) X10*3/uL MPV (9.4-12.3) fL Immature Gran % (Auto) (0.0-0.4) % Neut % (Auto) (45-73) % Lymph % (Auto) (20-40) % Kendall % (Auto) (2-11) % Eos % (Auto) (0-4) % Baso % (Auto) (0-2) % Lymph # (Auto) (1.2-4.9) X10*3/uL [place]all # (Auto) (0.1-1.2) X10*3/uL Eos # (Auto) (0.0-0.4) X10*3/uL Baso # (Auto) (0.0-0.2) X10*3/uL Abs Immat Gran (auto) (0.00-0.03) X10*3/uL Absolute Neuts (auto) (2.0-8.3) x10*3/uL Absolute Nucleated RBC (0.0-0.012) X10*3/uL Nucleated RBC % (auto) (0.0-0.2) /100WBC Sodium 141 (135-145) mmol/L Potassium 3.7 (3.3-5.1) mmol/L Chloride 105 (96-108) mmol/L Carbon Dioxide 23 (22-29) mmol/L Anion Gap 17 (12-20) BUN 8 L (9-16) mg/dL Creatinine 0.72 (0.5-1.4) mg/dL Estim Creat Clear Calc 136.0 Estimated GFR > 60 Random Glucose 108 (60-115) mg/dL Calcium 8.8 (8.4-10.2) mg/dL Beta HCG, Quant < 2 mIU/mL Urine Color Yellow Cancelled Urine Appearance Cloudy Cancelled Urine pH 6.0 Cancelled (5.0-9.0) Ur Specific [place] 1.020 Cancelled (1.005-1.025) Urine Protein Negative Cancelled (Neg-Trace) mg/dL Urine Glucose (UA) Negative Cancelled (Negative) mg/dL Urine Ketones Negative Cancelled (Negative) mg/dL Urine Blood Negative Cancelled (Negative) Urine Nitrite Negative Cancelled (Negative) Ur Leukocyte Esterase Moderate (2+) H Cancelled (Negative) Urine RBC 3-5 H Cancelled (0-2) /HPF Urine WBC 21-50 H Cancelled (0-5) /HPF Urine WBC Clumps Cancelled Ur Squamous Epith Cells 11-20 Cancelled (0-2) /HPF Ur Transition Epith Cell Cancelled Ur Renal Epithelial Cell Cancelled Calcium Oxalate Crystal Cancelled Leucine Crystals Cancelled Cystine Crystals Cancelled Tyrosine Crystals Cancelled Other Crystals Cancelled Urine Bacteria 3+ Cancelled (None Seen) Urine Parasites Cancelled Bilirubin Casts Cancelled Epithelial Casts Cancelled Fatty Casts Cancelled Hyaline Casts 0-2 Cancelled (0-2) /LPF Granular Casts Cancelled Waxy Casts Cancelled Broad Casts Cancelled RBC Casts Cancelled WBC Casts Cancelled Other Casts Cancelled Urine Trichomonas Cancelled Urine Yeast Cancelled COVID-19 (PURNIMA) (Negative) COVID-19 Clin Com Influenza Type A (IRAM) (Negative) Influenza Type B (IRAM) (Negative) Influenza A & B Note Discharge Plan Discharge Clinical Impression: Abscess, peritonsillar Patient Disposition: Home, Self-Care Instructions: Peritonsillar Abscess (ED) Additional Instructions: Continue clindamycin Saline gargles Follow-up with ENT specialist if pain continues or have difficulty in swallowing Prescriptions: No Action ibuprofen 800 mg tablet 800 mg PO Q8H PRN (Reason: pain) Qty: 30 0RF clindamycin HCl 300 mg capsule 300 mg PO BID 7 Days Qty: 14 0RF prednisone 20 mg tablet 60 mg PO DAILY 7 Days Qty: 21 0RF valacyclovir [Valtrex] 1 gram tablet 1,000 mg PO TID 7 Days Qty: 21 0RF prednisone 20 mg tablet 60 mg PO DAILY 7 Days Qty: 21 0RF clindamycin HCl 150 mg capsule 450 mg PO Q8H 7 Days Qty: 63 0RF Referrals: Anjel Crisostomo [Physician] - 1 week Interventions: ED Discharge Assessment Last Done: 10/26/22 07:52 Discharge Date/Time: 10/26/22 07:53
[2022-10-26 05:20] LABS: MANUAL DIFF FLAG NO
[2022-10-26 05:21] LABS: Basophils Absolute Auto 0.1 X10*3/uL (0.0-0.2); Basophils Percent Auto 0.5 % (0-2); Eosinophils Absolute Auto 0.3 X10*3/uL (0.0-0.4); Eosinophils Percent Auto 2.7 % (0-4); Hematocrit 37.1 % (37.0-47.0); Hemoglobin 11.2 g/dl (12.0-16.0); Imm Gran Abs Auto 0.05 X10*3/uL (0.00-0.03); Imm Gran Pct Auto 0.4 % (0.0-0.4); Lymphocytes Absolute Auto 3.1 X10*3/uL (1.2-4.9); Lymphocytes Percent Auto 27.5 % (20-40); Mean Corpuscular HGB Conc 30.2 g/dl (31.0-35.0); Mean Corpuscular Hemoglobin 21.7 pg (27.0-33.0); Mean Corpuscular Volume 71.9 fL (80.0-98.0); Mean Platelet Volume 9.8 fL (9.4-12.3); Monocytes Absolute Auto 0.9 X10*3/uL (0.1-1.2); Monocytes Percent Auto 7.8 % (2-11); Neutrophils Absolute Auto 6.9 x10*3/uL (2.0-8.3); Neutrophils Percent Auto 61.1 % (45-73); Platelet Count 363 X10*3/uL (160-400); Red Blood Count 5.16 X10*6/uL (4.20-5.50); Red Cell Distribution Width 16.9 % (11.0-16.0); White Blood Count 11.3 X10*3/uL (4.8-10.8)
[2022-10-26] MEDS: dexAMETHasone sod phosphate 10 MG/ML VIAL IVPUSH (05:28)
[2022-10-26] MEDS: cefTRIAXone sodium 1 GM in 0.9 % Sodium Chloride 50 ML IV (05:29)
--- NOTE | 2022-10-26 05:33 | PC.NURSE ---
Spoke to Dr. Parikh regarding Antibiotic and allergy concern, pt provider to administer medication. Pt does not take at home, had to document that on Election Supervisor override to give medication. Charge nurse Alexa gaspar. Will continue to monitor pt. Iv placed in right AC
[2022-10-26 05:38] LABS: Appearance Urine Cloudy; Color Urine Yellow; Glucose Urine UA Negative (Negative); Leukocyte Esterase Urine Moderate (2+) (Negative); Nitrite Urine Negative (Negative); UMIC TRIGGER UACC YES; Urine Blood Negative (Negative); Urine Ketones Negative (Negative); Urine Protein Negative (Neg-Trace)
[2022-10-26 05:41] LABS: Anion Gap 17 (12-20); Blood Urea Nitrogen 8 mg/dL (9-16); Calcium 8.8 mg/dL (8.4-10.2); Carbon Dioxide 23 mmol/L (22-29); Chloride 105 mmol/L (96-108); Estimated Glomerular Filt Rate > 60; Glucose Random 108 mg/dL (60-115); Potassium 3.7 mmol/L (3.3-5.1); Sodium 141 mmol/L (135-145)
[2022-10-26 05:43] LABS: Bacteria Urine 3+ (None Seen); Hyaline Casts Urine 0-2 /LPF (0-2); UACC Culture Trigger YES; WBC Urine 21-50 /HPF (0-5)
[2022-10-26 05:44] LABS: HCG Quantitative < 2 mIU/mL
[2022-10-26] MEDS: iohexoL 350 MG/ML 100 ML INFUS..BTL 60 ML IV (06:22)
[2022-10-26 06:49] VITALS: BP 119/62; PULSE 108; RESP 18; TEMP 37; O2SAT 98
== END 2022-10-26 07:53 | disposition home or self-care (01) ==
PROVIDERS: Emergency Provider Internal Medicine
DX: J36 Peritonsillar abscess (principal); Z20.822 Contact with and (suspected) exposure to COVID-19
CPT/HCPCS: 36415; 70491; 80048; 81001; 84702; 85025; 87086; 87502; 87635; 96374; 96375; 99284; J0696; J1100; Q9967

== ENCOUNTER 2025-08-06 22:47 | Emergency (ER) | payer SELFPAY ==
[2025-08-06 22:56] VITALS: BP 123/84; PULSE 97; RESP 18; TEMP 36.7; O2SAT 97; BMI 46.9
[2025-08-06 23:24] LABS: Hematocrit 38.2 % (37.0-47.0); Hemoglobin 11.7 g/dl (12.0-16.0); Imm Gran Abs Auto 0.04 X10*3/uL (0.00-0.03); Imm Gran Pct Auto 0.3 % (0.0-0.4); Lymphocytes Absolute Auto 4.0 X10*3/uL (1.2-4.9); MANUAL DIFF FLAG NO; Mean Corpuscular HGB Conc 30.6 g/dl (31.0-35.0); Mean Corpuscular Hemoglobin 21.2 pg (27.0-33.0); Mean Corpuscular Volume 69.3 fL (80.0-98.0); NRBC Abs Auto 0.000 X10*3/uL (0.0-0.012); NRBC Pct Auto 0.0 /100WBC (0.0-0.2); Platelet Count 379 X10*3/uL (160-400); Red Blood Count 5.51 X10*6/uL (4.20-5.50); White Blood Count 11.5 X10*3/uL (4.8-10.8)
[2025-08-06 23:39] LABS: Alanine Aminotransferase 21 U/L (0-31); Albumin Level 4.0 g/dL (3.5-5.0); Alkaline Phosphatase 85 U/L (39-117); Anion Gap 13 (12-20); Aspartate Amino Transferase 17 U/L (5-31); Blood Urea Nitrogen 10 mg/dL (9-16); Calcium 9.0 mg/dL (8.4-10.2); Carbon Dioxide 22 mmol/L (22-29); Chloride 110 mmol/L (96-108); Creatinine Clr Calc Pharmacy 144.4; Estimated Glomerular Filt Rate > 60; Potassium 3.8 mmol/L (3.3-5.1); Sodium 141 mmol/L (135-145); Total Protein 6.7 g/dL (6.5-8.0)
--- OUTSIDE RECORDS SUMMARY | 2025-08-07 00:22 | XMS_ITS ---
Author Name [facility] Organization Unknown Encounters Encounter Type Encounter Reason Primary Diagnosis [facility] 05/02/2022 Care Team Organization Name Specialty Phone Email Start Date End Da te [facility] PredictAd ADAMARIS MCARTHUR Primary Care 05/02/2022 [facility] PCP,No Primary Care 05/02/2022 [facility] NO PCP Primary Care 04/10/2022 06/28/2022
--- OUTSIDE RECORDS SUMMARY | 2025-08-07 00:22 | XMS_ITS | Clinical Summary ---
Author Organization [facility] Address [address] [place] [address] Care Team Providers Care Sr. Manager Marketing Name Role Phone Unavailable Primary Care Provider Unavailabl e Social History Tobacco Use Types Packs/Day Years Used Date Smoking Tobacco: Never Assessed Sex and Gender Information Value Date Recorded Sex Assigned at Not on file Gender Identity Not on file Sexual Orientation Not on file Plan of Treatment Health Maintenance Due Date Last Done Comments Hepatitis B Vaccines (1 of 3 - 3-dose series) 1992 Hepatitis C Screening 1992 COVID-19 Vaccine (#1) 01/29/1993 Depression Screening 2004 Preventative Health Evaluation 2010 DTap / Tdap / Td (1 - Tdap) 2011 Influenza Vaccine (#1) 2025 Pneumococcal Vaccine Aged Out No long er eligible based on patient's age to complete this topic RSV Ped < 20 months Aged Out No longe r eligible based on patient's age to complete this topic
--- OUTSIDE RECORDS SUMMARY | 2025-08-07 00:22 | XMS_ITS | Clinical Summary ---
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 Immunizations Immunization Administration Dates Next Due Influenza Inactivated/Split Preservative Free IM 06/20/2020 Social History Tobacco Use Types Packs/Day Years Used Date Smoking Tobacco: Never Smokeless Tobacco: Never Alcohol Use Standard Drinks/Week Comments Not Currently 0 (1 standard drink = 0.6 oz pur e alcohol) Comments No Sex and Gender Information Value Date Recorded Sex Assigned at Not on file Legal Sex Female 10:14 AM EST Gender Identity Not on file Sexual Orientation Not on file Last Filed Vital Signs Vital Sign Reading Time Taken Comments Blood Pressure 105/71 05/02/2022 9:14 AM EDT Pulse 80 05/02/2022 9:14 AM EDT Temperature 36.9 C (98.4 F) 05/02/2022 9:14 AM EDT Respiratory Rate 16 05/02/2022 9:14 AM EDT Oxygen Saturation 98% 05/02/2022 9:14 AM EDT Inhaled Oxygen Concentration - - Weight 111 kg (245 lb 6.4 oz) 05/02/2022 9:14 AM EDT Height 159.3 cm (5' 2.7 ) 05/02/2022 9:14 AM EDT Body Mass Index 43.89 05/02/2022 9:14 AM EDT Plan of Treatment Health Maintenance Due Date Last Done Comments Hepatitis C Virus Screening 1992 HIV Screening 2005 DTaP/Tdap/Td Vaccines (1 - Tdap) 2011 Hepatitis B Vaccines (1 of 3 - 19+ 3-dose series) 2011 Pap Smear (Ages 21-65) 2013 Influenza Vaccine 04/08/2025 06/20/2020 COVID-19 Vaccine (1 - 2023-2 5 season) 2025 HPV Vaccines (No Doses Required) Completed Pneumococcal Vaccine: Pediat bharti (0-5 Years) and At-Risk Patients (6 to 49 Years) Aged Out No longer eligible b ased on patient's age to complete this topic Insurance [facility]
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
[2025-08-07 02:23] VITALS: BP 125/77; PULSE 95; RESP 16; TEMP 36.7; O2SAT 96
[2025-08-07] MEDS: Diphth,Pertus(ACell),Tet Adult 0.5 ML SYRINGE IM (02:34)
[2025-08-07 02:44] VITALS: BP 125/77; PULSE 95; RESP 16; TEMP 36.7; O2SAT 96
== END 2025-08-07 02:45 | disposition home or self-care (01) ==
PROVIDERS: Emergency Provider Emergency Medicine
DX: T21.02XA Burn of unspecified degree of abdominal wall, initial encounter (principal); X12.XXXA Contact with other hot fluids, initial encounter; Y93.89 Activity, other specified; Y92.098 Other place in other non-institutional residence as the place of occurrence of the external cause; Y99.8 Other external cause status
CPT/HCPCS: 36415; 80053; 85025; 90471; 90715; 99283; 99284